=== PATIENT | male | born 1985 | race Caucasian/White ===

== ENCOUNTER 2020-04-09 18:59 | Emergency (ER) | payer SELFPAY ==
[~2020-04-09] VITALS: Ht 177.8 cm; Wt 84.0 kg
--- NOTE | 2020-04-09 19:15 | NUR ---
pt to room [facility], transferr from [facility] for a throat abcess. was medically treated there, with ct/us and iv antibiotics. report and care received
--- NOTE | 2020-04-09 19:29 | NUR ---
MD verito gary pt. pt a&ox4, no respiratory distress. placed on cr monitor, able to swallow bettter per pt. per pt, the abcess in back of throat was needled for an attempt to drain it at last facility. resting comfortably.
[2020-04-09] MEDS ORDERED: AMOXICILLIN/CLAV 875-125MG TABLET PO ONE (19:30)
[2020-04-09] MEDS ORDERED: PLEASE ENTER ALLERGIES MC SCH (20:00)
[2020-04-09 20:35] VITALS: BP 142/70
[2020-04-09] MEDS ORDERED: AMOXICILLIN/CLAV 875-125MG TABLET ONE (20:58)
--- NOTE | 2020-04-09 21:30 | NUR ---
iv d/c'd prior to pt discharge. cath intact, no issue.
== END 2020-04-09 21:11 | disposition home or self-care (01) ==
LOC: ED 19:39
DX: J36 Peritonsillar abscess (principal); R13.10 Dysphagia, unspecified; F17.210 Nicotine dependence, cigarettes, uncomplicated
CPT/HCPCS: 99283; 99406